=== PATIENT | male | born 1980 | race Caucasian/White ===

== ENCOUNTER 2017-04-18 14:04 | Emergency (ER) | payer BC ==
[2017-04-18 14:45] VITALS: BP 142/84
[2017-04-18] MEDS ORDERED: Sodium Chloride 0.9% 10 ML Syringe FLUSH PRN (14:50)
[2017-04-18] MEDS ORDERED: Sodium Chloride 0.9% 1,000 ML IV ONE ×2 (14:50→16:11)
[2017-04-18] MEDS ORDERED: Ketorolac 30 MG/ML SDV IVPUSH ONE (15:09)
--- NOTE | 2017-04-18 17:54 | EDM.PDOC ---
ED HPI GENERAL MEDICAL PROBLEM - General Chief Complaint: Gastrointestinal Problem Stated Complaint: NAUSEA/ABDOMINAL PAIN- DIABETIC Time Seen by Provider: 04/18/17 14:49 Source of Information: Reports: Patient History Limitations: Reports: No Limitations - History of Present Illness INITIAL COMMENTS - FREE TEXT/NARRATIVE: 36 year old male presents for evaluation and treatment of nausea, vomiting, diarrhea and abdominal pain. Reports symptoms started at 0100 this morning. Reports he has vomited 4 times today. Reports associated bodyaches. Describes the abdominal pain as "squeezing". States he has had a "little bit" of a cough. No headaches, chest pain, shortness of breath, ear pain or sore throat. Patient did take a zofran around 11 today, no vomiting since taking the zofran. Patient is a type 2 diabetic. Currently on oral medications. Does not check his blood sugars frequently. Blood sugar upon arrival in the ER was 309. Denies any recent travel. Reports several ill contacts. 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 Patient did get a flu shot this year. PCP is Dr. Blair. Patient reports he has had DKA before. Concerned he is in DKA again today. 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: Other Medication(s) (zofran) Abdominal Pain Score (Numeric/FACES): 5 - Related Data Allergies Allergy/AdvReac Type Severity Reaction Status Date / Time metformin Allergy Leg Cramps Verified 04/18/17 14:40 Home Meds: Home Meds glipiZIDE [Glucotrol] 10 mg PO TID 06/19/14 [History] Lisinopril 20 mg PO DAILY 09/12/15 [History] Ondansetron [Zofran ODT] 4 mg PO Q6H PRN #20 tab.dis 04/18/17 [Rx] Pioglitazone [Actos] 15 mg PO DAILY 04/18/17 [History] Past Medical History HEENT History: Reports: Impaired Vision Cardiovascular History: Reports: Hypertension Musculoskeletal History: Reports: None Endocrine/Metabolic History: Reports: Diabetes, Type II - Past Surgical History HEENT Surgical History: Reports: Other (See Below) Other HEENT Surgeries/Procedures: wisdom teeth Cardiovascular Surgical History: Reports: None Musculoskeletal Surgical History: Reports: Arthroscopic Knee Social & Family History - Family History Family Medical History: Noncontributory - Tobacco Use Smoking Status *Q: Never Smoker Second Hand Smoke Exposure: No - Caffeine Use Caffeine Use: Reports: Coffee, Soda - Alcohol Use Days Per Week of Alcohol Use: 0 - Recreational Drug Use Recreational Drug Use: No - Living Situation & Occupation Living situation: Reports: , with Family Occupation: Employed ED ROS GENERAL - Review of Systems Review Of Systems: See Below Constitutional: Reports: Other (reports bodyaches) HEENT: Denies: Ear Pain, Throat Pain Respiratory: Reports: Cough (slight). Denies: Shortness of Breath Cardiovascular: Denies: Chest Pain GI/Abdominal: Reports: Abdominal Pain ("squeezing"), Diarrhea, Nausea, Vomiting Neurological: Denies: Headache ED EXAM, GI/ABD - Physical Exam Exam: See Below Exam Limited By: No Limitations General Appearance: Alert, WD/WN, No Apparent Distress, Obese Ears: Normal External Exam, Normal Canal, Hearing Grossly Normal, Normal TMs Nose: Normal Inspection Throat/Mouth: Normal Inspection, Normal Lips, Normal Voice, No Airway Compromise Respiratory/Chest: No Respiratory Distress, Lungs Clear, Normal Breath Sounds Cardiovascular: Normal Peripheral Pulses, Regular Rate, Rhythm, No Murmur GI/Abdominal Exam: Normal Bowel Sounds, Soft, Non-Tender Neurological: Alert, Oriented, Normal Cognition Psychiatric: Normal Affect, Normal Mood Skin Exam: Warm, Dry, Normal Color Course - Vital Signs Last Recorded V/S: Last Vital Signs Temp 37.7 C 04/18/17 14:40 Pulse 123 H 04/18/17 15:01 Resp 30 H 04/18/17 15:01 BP 142/84 H 04/18/17 14:40 Pulse Ox 93 L 04/18/17 15:01 - Orders/Labs/Meds Orders: Active Orders 24 hr Category Date Time Status Blood Glucose Check, Bedside [RC] ONETIME Care 04/18/17 14:50 Active Peripheral IV Care [RC] . DIRECTED Care 04/18/17 14:50 Active Peripheral IV Insertion Adult [OM.PC] Routine Oth 04/18/17 14:50 Ordered Labs: Laboratory Tests 04/18/17 04/18/17 04/18/17 Range/Units 14:55 15:00 15:00 WBC 8.42 (4.23-9.07) K/mm3 RBC 5.75 (4.63-6.08) M/mm3 Hgb 16.4 (13.7-17.5) gm/L Hct 46.3 (40.1-51.0) % MCV 80.5 (79.0-92.2) fl MCH 28.5 (25.7-32.2) pg MCHC 35.4 (32.2-35.5) g/dl RDW Std Deviation 42.0 (35.1-43.9) fL Plt Count 202 (163-337) K/mm3 MPV 10.5 (9.4-12.3) fl Neutrophils % (Manual) 88 H (40-60) % Band Neutrophils % 4 (0-10) % Lymphocytes % (Manual) 3 L (20-40) % Monocytes % (Manual) 4 (2-10) % Eosinophils % (Manual) 0 L (0.8-7.0) % Basophils % (Manual) 1 (0.2-1.2) Platelet Estimate Adequate Plt Morphology Comment Normal RBC Morph Comment Normal Smear Path Review TNP Sodium 135 L (136-145) mEq/L Potassium 4.0 (3.5-5.1) mEq/L Chloride 100 (98-107) mEq/L Carbon Dioxide 23 (21-32) mEq/L Anion Gap 16.0 H (5-15) BUN 10 (7-18) mg/dL Creatinine 1.0 (0.7-1.3) mg/dL Est Cr Clr Drug Dosing 124.40 mL/min Estimated GFR (MDRD) > 60 (>60) mL/min BUN/Creatinine Ratio 10.0 L (14-18) Glucose 304 H (74-106) mg/dL POC Glucose 309 H (70-105) mg/dL Serum Osmolality (280-300) mosm/kg Calcium 9.0 (8.5-10.1) mg/dL Total Bilirubin 0.9 (0.2-1.0) mg/dL AST 62 H (15-37) U/L ALT 81 H (16-63) U/L Alkaline Phosphatase 73 (46-116) U/L Total Protein 7.3 (6.4-8.2) g/dl Albumin 3.6 (3.4-5.0) g/dl Globulin 3.7 gm/dL Albumin/Globulin Ratio 1.0 (1-2) Lipase (73-393) U/L Urine Color (Yellow) Urine Appearance (Clear) Urine pH (5.0-8.0) Ur Specific Birney (1.005-1.030) Urine Protein (Negative) Urine Glucose (UA) (Negative) Urine Ketones (Negative) Urine Occult Blood (Negative) Urine Nitrite (Negative) Urine Bilirubin (Negative) Urine Urobilinogen (0.2-1.0) Ur Leukocyte Esterase (Negative) Urine RBC (0-5) /hpf Urine WBC (0-5) /hpf Ur Epithelial Cells (0-5) /hpf Amorphous Sediment (NOT SEEN) /hpf Urine Bacteria (FEW) /hpf Hyaline Casts (0-5) /lpf Urine Mucus (FEW) /hpf Ketones (0.0-0.3) mM Slides for Path Review TNP 04/18/17 04/18/17 04/18/17 Range/Units 15:00 15:00 16:30 WBC (4.23-9.07) K/mm3 RBC (4.63-6.08) M/mm3 Hgb (13.7-17.5) gm/L Hct (40.1-51.0) % MCV (79.0-92.2) fl MCH (25.7-32.2) pg MCHC (32.2-35.5) g/dl RDW Std Deviation (35.1-43.9) fL Plt Count (163-337) K/mm3 MPV (9.4-12.3) fl Neutrophils % (Manual) (40-60) % Band Neutrophils % (0-10) % Lymphocytes % (Manual) (20-40) % Monocytes % (Manual) (2-10) % Eosinophils % (Manual) (0.8-7.0) % Basophils % (Manual) (0.2-1.2) Platelet Estimate Plt Morphology Comment RBC Morph Comment Smear Path Review Sodium (136-145) mEq/L Potassium (3.5-5.1) mEq/L Chloride (98-107) mEq/L Carbon Dioxide (21-32) mEq/L Anion Gap (5-15) BUN (7-18) mg/dL Creatinine (0.7-1.3) mg/dL Est Cr Clr Drug Dosing mL/min Estimated GFR (MDRD) (>60) mL/min BUN/Creatinine Ratio (14-18) Glucose (74-106) mg/dL POC Glucose (70-105) mg/dL Serum Osmolality 291 (280-300) mosm/kg Calcium (8.5-10.1) mg/dL Total Bilirubin (0.2-1.0) mg/dL AST (15-37) U/L ALT (16-63) U/L Alkaline Phosphatase (46-116) U/L Total Protein (6.4-8.2) g/dl Albumin (3.4-5.0) g/dl Globulin gm/dL Albumin/Globulin Ratio (1-2) Lipase 153 (73-393) U/L Urine Color Yellow (Yellow) Urine Appearance Clear (Clear) Urine pH 5.5 (5.0-8.0) Ur Specific Birney > or = 1.030 (1.005-1.030) Urine Protein Trace H (Negative) Urine Glucose (UA) 2+ H (Negative) Urine Ketones Negative (Negative) Urine Occult Blood Negative (Negative) Urine Nitrite Negative (Negative) Urine Bilirubin Negative (Negative) Urine Urobilinogen 0.2 (0.2-1.0) Ur Leukocyte Esterase Negative (Negative) Urine RBC 0-5 (0-5) /hpf Urine WBC 0-5 (0-5) /hpf Ur Epithelial Cells Not seen (0-5) /hpf Amorphous Sediment Many H (NOT SEEN) /hpf Urine Bacteria Few (FEW) /hpf Hyaline Casts 0-5 (0-5) /lpf Urine Mucus Moderate H (FEW) /hpf Ketones 0.19 (0.0-0.3) mM Slides for Path Review Meds: Medications Discontinued Medications Generic Name Dose Route Start Last Admin Trade Name Chance PRN Reason Stop Dose Admin Sodium Chloride 1,000 mls @ 999 mls/hr 04/18/17 14:50 04/18/17 15:10 Normal Saline IV 04/18/17 15:50 999 mls/hr ONETIME ONE Administration Sodium Chloride 1,000 mls @ 999 mls/hr 04/18/17 16:11 04/18/17 16:18 Normal Saline IV 04/18/17 17:11 999 mls/hr ONETIME ONE Administration Ketorolac Tromethamine 30 mg 04/18/17 15:09 04/18/17 15:12 Toradol IVPUSH 04/18/17 15:10 30 mg ONETIME ONE Administration Sodium Chloride 10 ml 04/18/17 14:50 04/18/17 15:10 Saline Flush FLUSH 10 ml ASDIRECTED PRN Administration Keep Vein Open - Radiology Interpretation Free Text/Narrative:: 2 view chest xray shows no acute intrathoracic process. - Re-Assessments/Exams Free Text/Narrative Re-Assessment/Exam: 04/19/17 14:45 influenza is negative. I reviewed the labs and imaging with the patient. Improved after fluids. Will discharge home at this time. Discharge instructions as documented. Departure - Departure Time of Disposition: 17:49 Disposition: Home, Self-Care 01 Condition: Good Clinical Impression: Viral gastroenteritis - Discharge Information Prescriptions: Ondansetron [Zofran ODT] 4 mg PO Q6H PRN #20 tab.dis PRN Reason: Nausea Instructions: Viral Gastroenteritis, Adult Referrals: PCP,Unknown [Primary Care Provider] - Forms: ED Department Discharge, ED Return to Work/School Form Additional Instructions: Zofran 1 tab sublingual every 6 hours as needed for nausea. Make sure you are drinking plenty of fluids. Follow-up with your primary care provider early next week for recheck of your symptoms. note given for work. recommend Starting an [id number] probiotic for additional symptom relief. Please return to the ER if your symptoms change or worsen. - My Orders Last 24 Hours: My Active Orders 04/18/17 14:50 Blood Glucose Check, Bedside [RC] ONETIME Peripheral IV Care [RC] . DIRECTED Peripheral IV Insertion Adult [OM.PC] Routine - Assessment/Plan Last 24 Hours: My Active Orders 04/18/17 14:50 Blood Glucose Check, Bedside [RC] ONETIME Peripheral IV Care [RC] . DIRECTED Peripheral IV Insertion Adult [OM.PC] Routine
--- NOTE | 2017-04-19 10:08 | CR ---
Chest: Portable view of the chest was obtained. Comparison: Prior chest x-ray of 06/19/14. Heart size and mediastinum are within normal limits. Lungs are clear. Bony structures appear within normal limits. Impression: 1. Nothing acute is identified on portable chest x-ray. Diagnostic code #1
== END 2017-04-18 18:07 | disposition home or self-care (01) ==
LOC: JD.ED 14:04
DX: A08.4 Viral intestinal infection, unspecified (principal); E11.9 Type 2 diabetes mellitus without complications; I10 Essential (primary) hypertension; Z79.899 Other long term (current) drug therapy
CPT/HCPCS: 36415; 71010; 80053; 81001; 82009; 82962; 83690; 83930; 85025; 87804; 96361; 96374; 99284; J1885; J7040; J7050

== ENCOUNTER 2019-07-14 18:06 | Emergency (ER) | payer BC, OTHER ==
[2019-07-14 18:21] VITALS: BP 145/99; PULSE 100
--- NOTE | 2019-07-14 19:21 | EDM.PDOC ---
ED HPI GENERAL MEDICAL PROBLEM - General Chief Complaint: ENT Problem Stated Complaint: sore throat cough ear pain Time Seen by Provider: 07/14/19 19:21 Source of Information: Reports: Patient History Limitations: Reports: No Limitations - History of Present Illness INITIAL COMMENTS - FREE TEXT/NARRATIVE: 38-year-old male presents to the ED with persistent upper respiratory infection symptoms off and on for the last 3 weeks. He just cannot seem to get better. He is aware of sinus congestion and having to blow his nose a fair amount. Aware of postnasal drip causing sore throat. Paroxysmal productive cough of a danielle brownish sputum. No chest pain. No severe fever. No wheezing. Tonight right ear pain seem to be getting worse and this is the reason he came to the ED. 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 Onset: Gradual Onset Date: 06/23/19 Duration: Week(s): (Mark is been sick off and on for the last 3 weeks.), Intermittent, Waxing/Waning Location: Reports: Face (Sore throat nasal congestion), Chest (Accessible cough to the point of near emesis.) Quality: Reports: Other Severity: Moderate (Burning sharp pain throat and right ear) Improves with: Reports: Medication Worsens with: Reports: None Context: Reports: Sick Contact (Runs a daycare center with his .). Denies: Activity, Exercise, Lifting, Trauma, Other Associated Symptoms: Reports: Cough, cough w sputum, Fever/Chills, Loss of Appetite, Malaise, Other (Your throat with right ear pain). Denies: No Other Symptoms, Confusion, Chest Pain, Diaphoresis (Fever but no chills), Headaches, Nausea/Vomiting, Rash, Seizure, Shortness of Breath, Syncope Treatments WELCOME HOSTESS: Reports: NSAIDS (Motrin) Throat Pain Score (Numeric/FACES): 5 - Related Data Allergies Allergy/AdvReac Type Severity Reaction Status Date / Time metformin Allergy Leg Cramps Verified 07/14/19 18:21 Home Meds: Home Meds glipiZIDE [Glucotrol] 10 mg PO TID 06/19/14 [History] Lisinopril 20 mg PO DAILY 09/12/15 [History] Doxycycline [Vibramycin] 100 mg PO BID #20 cap 07/14/19 [Rx] Loratadine/Pseudoephedrine [Claritin-D 12 Hour] 1 tab PO Q12HR #6 tab.er [Rx] Past Medical History HEENT History: Reports: Impaired Vision Cardiovascular History: Reports: Hypertension Respiratory History: Reports: None Gastrointestinal History: Reports: None Genitourinary History: Reports: None Musculoskeletal History: Reports: None Neurological History: Reports: None Psychiatric History: Reports: None Endocrine/Metabolic History: Reports: Diabetes, Type II, Obesity/BMI 30+ Hematologic History: Reports: None Immunologic History: Reports: None Oncologic (Cancer) History: Reports: None Dermatologic History: Reports: None - Infectious Disease History Infectious Disease History: Reports: None - Past Surgical History HEENT Surgical History: Reports: Oral Surgery Other HEENT Surgeries/Procedures: wisdom teeth Cardiovascular Surgical History: Reports: None Musculoskeletal Surgical History: Reports: Arthroscopic Knee Social & Family History - Family History Family Medical History: Noncontributory - Tobacco Use Smoking Status *Q: Never Smoker - Caffeine Use Caffeine Use: Reports: Soda - Recreational Drug Use Recreational Drug Use: No - Living Situation & Occupation Living situation: Reports: , with Family Occupation: Employed ED ROS ENT - Review of Systems Review Of Systems: See Below Constitutional: Reports: Fever, Malaise, Weakness, Fatigue, Decreased Appetite HEENT: Reports: Ear Pain (Right earache.), Sinus Problem (Sinus congestion with postnasal drip), Throat Pain Respiratory: Reports: Cough, Sputum. Denies: Shortness of Breath, Wheezing, Pleuritic Chest Pain, Hemoptysis Cardiovascular: Reports: Chest Pain, Blood Pressure Problem (Upper chest pain from coughing so much.). Denies: Claudication, Dyspnea on Exertion, Edema, Lightheadedness, Orthopnea, Palpitations Endocrine: Reports: Fatigue GI/Abdominal: Reports: Decreased Appetite : Reports: No Symptoms Musculoskeletal: Reports: Back Pain Skin: Reports: No Symptoms Neurological: Reports: No Symptoms Psychiatric: Reports: No Symptoms ED EXAM, ENT - Physical Exam Exam: See Below Exam Limited By: No Limitations General Appearance: Alert, WD/WN, No Apparent Distress, Other (Vital signs show temperature 36.8 heart rate 100 and sinus. Respiratory is 18. O2 sats 95% room air BP slightly elevated 145/99. Come down to 136/92.) Eye Exam: Bilateral Eye: Normal Inspection Ears: TM Bulging ( with slight erythema inside), Other (There is slight erythema of the left ear with retraction. There is bulging of the right ear) Nose: Other (Nose show some slight swelling of the medial and superior turbinates without obstruction or polyp formation) Mouth/Throat: Normal Teeth, Other (Have red streaking posterior oropharynx on the right side.). No: Normal Inspection, Normal Gums, Normal Lips, Normal Oropharynx Head: Atraumatic, Normocephalic Neck: Normal Inspection, Supple, Non-Tender, Full Range of Motion. No: Lymphadenopathy (L), Lymphadenopathy (R) Respiratory/Chest: No Respiratory Distress, Lungs Clear, Normal Breath Sounds Cardiovascular: Normal Peripheral Pulses, Regular Rate, Rhythm, No Edema, No Gallop, No Murmur, No Rub GI/Abdominal: Normal Bowel Sounds, Soft, Non-Tender, No Organomegaly Back: Normal Inspection, Full Range of Motion. No: CVA Tenderness (L), CVA Tenderness (R) Extremities: Normal Inspection, Normal Range of Motion, Non-Tender, No Pedal Edema Neurological: Alert, Oriented, CN II-XII Intact, Normal Cognition Psychiatric: Normal Affect, Normal Mood Course - Vital Signs Last Recorded V/S: Last Vital Signs Temp 36.8 C 07/14/19 18:18 Pulse 100 07/14/19 18:18 Resp 16 07/14/19 18:18 BP 145/99 H 07/14/19 18:18 Pulse Ox 95 07/14/19 18:18 - Radiology Interpretation Free Text/Narrative:: 88-year-old male presents with persistent upper respiratory tract symptoms with sinus congestion postnasal drip and now development of right ear pain. Also has a paroxysmal cough likely from postnasal drip. Examination reveals slight erythema of the right eardrum. The left is retracted with serous otitis media. Nasally congested narrow strip of inflammation the right posterior oropharynx. Lower lungs are clear but he does have a very productive sounding cough from upper bronchitis. Plan treated with doxycycline 100 mg twice daily for the next 10 days to clear up infection in the sinuses. Added Claritin-D 12- hour relief once daily every morning for the next 6 days. The patient is a type II diabetic. Departure - Departure Time of Disposition: 19:33 Disposition: Home, Self-Care 01 Condition: Fair Clinical Impression: Bronchitis Sinusitis Qualifiers: Sinusitis location: unspecified location Chronicity: acute Recurrence: recurrent Qualified Code(s): J01.91 - Acute recurrent sinusitis, unspecified - Discharge Information *PRESCRIPTION DRUG MONITORING PROGRAM REVIEWED*: Not Applicable *COPY OF PRESCRIPTION DRUG MONITORING REPORT IN PATIENT MARIO: Not Applicable Prescriptions: Loratadine/Pseudoephedrine [Claritin-D 12 Hour] 1 tab PO Q12HR #6 tab.er Doxycycline [Vibramycin] 100 mg PO BID #20 cap Instructions: Sinusitis, Adult, [id number], Upper Respiratory Infection, Adult, [id number] Referrals: Tamanna Medina MD [Primary Care Provider] - Forms: ED Department Discharge Additional Instructions: Evaluation in the emergency room today in regards to right throat pain rating up into her right ear with swallowing. Harsh paroxysmal productive cough off and on for the last 3 weeks. I believe the primary problem is sinusitis with postnasal drip running down the back of your throat causing throat pain and persistent cough. Suggest treatment with cool mist humidifier and sleeping quarters. Decongestant Claritin-D 12-hour release 1 tablet every morning for the next 6 days. Antibiotic is to be doxycycline 100 mg twice daily for the next 10 days to clear up sinus infection postnasal drip and bronchitis. Any Motrin 600 mg every 6 hours as necessary for pain and fever relief. Expect gradual improvement over the next 3 to 4 days. Sepsis Event Note - Evaluation Sepsis Screening Result: No Definite Risk - Focused Exam Vital Signs: Vital Signs Temp Pulse Resp BP Pulse Ox 07/14/19 18:18 36.8 C 100 16 145/99 H 95 Date Exam was Performed: 07/14/19 Time Exam was Performed: 19:37
== END 2019-07-14 19:51 | disposition home or self-care (01) ==
LOC: JD.ED 18:06
DX: J40 Bronchitis, not specified as acute or chronic (principal); J01.91 Acute recurrent sinusitis, unspecified; E11.9 Type 2 diabetes mellitus without complications; I10 Essential (primary) hypertension; E66.9 Obesity, unspecified; Z68.41 Body mass index [BMI] 40.0-44.9, adult; Z79.899 Other long term (current) drug therapy; Z88.8 Allergy status to other drugs, medicaments and biological substances; Z79.84 Long term (current) use of oral hypoglycemic drugs
CPT/HCPCS: 99283

== ENCOUNTER 2020-09-25 22:16 | Emergency (ER) | payer OTHER ==
[2020-09-25] MEDS ORDERED: HYDROmorphone 1 MG/ML Syringe IVPUSH ONE (22:53)
[2020-09-25] MEDS ORDERED: Metoclopramide 10 MG/2 ML SDV IVPUSH ONE (22:54)
--- NOTE | 2020-09-25 22:59 | EDM.PDOC ---
ED HPI GENERAL MEDICAL PROBLEM - General Chief Complaint: Gastrointestinal Problem Stated Complaint: STOMACH ISSUES VOMMITTING Time Seen by Provider: 09/25/20 22:43 Source of Information: Reports: Patient History Limitations: Reports: No Limitations - History of Present Illness INITIAL COMMENTS - FREE TEXT/NARRATIVE: 40-year-old male who is a type II diabetic for about 9 years presents to the ED with acute onset of nausea vomiting and diarrhea. Symptoms started about 1800 hrs. with recurrent vomiting well in the vehicle traveling back from [place]. His is driving. He thought he could taste a bit of blood but did not recognize any blood pressure coming up from vomiting. He estimates he vomited about 15 times. Subsequently after getting home he has had about 5-6 large- volume yellow stool losses. No blood. Mild associated diffuse lower abdominal cramping pain. He did have a hamburger for dinner today. He thought it was well cooked. None of his other family members have been ill. He states there are members of the daycare that are sick x4 with gastroenteritis over this last week.. Patient states his blood sugars run high and he only checks once vick hly. Usually they have been around 400. Currently taking glipizide 10 mg twice daily and Ozempic 1 mg subcu weekly. Therefore diabetes is in very poor control. He has no known kidney or eye disease at this time. Blood sugar tested in the ED was 320. Patient has felt some chills but no noted fever. Onset: Today, Sudden Onset Date: 09/25/20 Onset Time: 18:00 Duration: Hour(s):, Constant Location: Reports: Abdomen (Intermittent nausea vomiting and diarrhea for the la st 5 hours.) Quality: Reports: Other (Intermittent lower abdominal cramping pain primarily left lower quadrant.) Severity: Moderate Improves with: Reports: None Worsens with: Reports: Other Context: Denies: Activity, Exercise, Lifting, Sick Contact, Trauma, Other Associated Symptoms: Reports: Fever/Chills, Loss of Appetite, Malaise. Denies: Confusion, Chest Pain, Cough, cough w sputum, Diaphoresis, Headaches, Nausea/Vomiting, Rash, Seizure (Few chills but no fever.), Shortness of Breath, Syncope, Weakness Treatments [employer]: Reports: Other (see below) (None. Nothing will stay down) Middle Abdominal Pain Score (Numeric/FACES): 5 - Related Data Allergies Allergy/AdvReac Type Severity Reaction Status Date / Time metformin Allergy Severe Leg Cramps Verified 09/25/20 22:40 Home Meds: Home Meds glipiZIDE [Glucotrol] 10 mg PO BID 06/19/14 [History] Lisinopril 20 mg PO DAILY 09/12/15 [History] Losartan Potassium [Cozaar] 50 mg PO DAILY 09/25/20 [History] Rosuvastatin Calcium 5 mg PO DAILY 09/25/20 [History] Semaglutide [Ozempic] 1 mg SUBCUT WEEKLY 09/25/20 [History] Dicyclomine [Bentyl] 20 mg PO Q6H PRN #5 tablet 09/26/20 [Rx] Ondansetron [Zofran] 4 mg BUCCAL Q6H PRN #10 tab 09/26/20 [Rx] Past Medical History HEENT History: Reports: Impaired Vision Cardiovascular History: Reports: High Cholesterol, Hypertension Respiratory History: Reports: None Gastrointestinal History: Reports: None Genitourinary History: Reports: None Musculoskeletal History: Reports: None Neurological History: Reports: None Psychiatric History: Reports: None Endocrine/Metabolic History: Reports: Diabetes, Type II, Obesity/BMI 30+ Hematologic History: Reports: None Immunologic History: Reports: None Oncologic (Cancer) History: Reports: None Dermatologic History: Reports: None - Infectious Disease History Infectious Disease History: Reports: None - Past Surgical History HEENT Surgical History: Reports: Oral Surgery Other HEENT Surgeries/Procedures: wisdom teeth Cardiovascular Surgical History: Reports: None Musculoskeletal Surgical History: Reports: Arthroscopic Knee Social & Family History - Family History Family Medical History: No Pertinent Family History - Caffeine Use Caffeine Use: Reports: Soda - Living Situation & Occupation Living situation: Reports: , with Family Occupation: Employed [employer] [facility] [employer] [facility] [facility] - Review of Systems Review Of Systems: See Below Constitutional: Reports: Chills, Malaise, Weakness, Fatigue, Decreased Appetite. Denies: Fever HEENT: Reports: No Symptoms Respiratory: Reports: No Symptoms Cardiovascular: Reports: No Symptoms Endocrine: Reports: Fatigue GI/Abdominal: Reports: Abdominal Pain (Intermittent lower abdominal cramping pain.), Diarrhea (5-6 large volume yellow stool losses per rectum tonight.), Nausea, Vomiting (Estimates he has vomited 15 times since) : Reports: Frequency Musculoskeletal: Reports: Back Pain Skin: Reports: No Symptoms Neurological: Reports: No Symptoms Psychiatric: Reports: No Symptoms Hematologic/Lymphatic: Reports: No Symptoms Immunologic: Reports: No Symptoms ED EXAM, GI/ABD - Physical Exam Exam: See Below Exam Limited By: No Limitations General Appearance: Alert, WD/WN, Mild Distress, Other (Temperature is 36.4 degrees. Heart rate 110 and sinus at the bedside. Respiratory is 20 with O2 sats of 94% at the bedside. BP 148/81.) Eyes: Bilateral: Normal Appearance (No scleral icterus or blepharal pallor.) Throat/Mouth: Other (Tongue is mildly coated.) Head: Atraumatic, Normocephalic Neck: Normal Inspection, Supple, Non-Tender, Full Range of Motion. No: Lymphadenopathy (L), Lymphadenopathy (R) Respiratory/Chest: Lungs Clear, Normal Breath Sounds (Mild tachypnea.), No Accessory Muscle Use, Chest Non-Tender, Respiratory Distress Cardiovascular: Normal Peripheral Pulses, Regular Rate, Rhythm, No Edema, No Gallop (Tachycardia at the bedside.), No JVD, No Murmur, No Rub, Tachycardia GI/Abdominal Exam: Soft ( Moderately obese.), No Organomegaly, No Abnormal Bruit, No Mass, Pelvis Stable, Tender (Minimally tender left lower quadrant of the abdomen. No peritoneal signs), Abnormal Bowel Sounds, Other (No surgical scars.). No: Guarding, Rigid, Rebound (Male) Exam: No Hernia Back Exam: Normal Inspection, Full Range of Motion. No: CVA Tenderness (L), CVA Tenderness (R) Extremities: Normal Inspection, Normal Range of Motion, Non-Tender, No Pedal Edema Neurological: Alert, Oriented, CN II-XII Intact, Normal Cognition Psychiatric: Normal Affect, Normal Mood Skin Exam: Warm, Dry, Intact, Normal Color, No Rash Course - Vital Signs Last Recorded V/S: Last Vital Signs Temp 36.4 C 09/25/20 22:35 Pulse 110 H 09/25/20 22:35 Resp 20 09/25/20 22:35 BP 148/81 H 09/25/20 22:35 Pulse Ox 90 L 09/25/20 22:35 - Orders/Labs/Meds Orders: Active Orders 24 hr Category Date Time Status Sodium Chloride 0.9% [Normal Saline] 1,000 ml Med 09/25/20 23:00 Active IV ASDIRECTED Sodium Chloride 0.9% [Normal Saline] 1,000 ml Med 09/26/20 00:15 Active IV ASDIRECTED Medication Orders Sodium Chloride (Normal Saline) 1,000 mls @ 999 mls/hr IV ASDIRECTED RUSSEL Last Admin: 09/26/20 00:25 Dose: 999 mls/hr Documented by: Infusion: 09/26/20 00:25 Dose: 999 mls/hr Documented by: Admin: 09/26/20 00:24 Dose: 999 mls/hr Documented by: Infusion: 09/26/20 00:18 Dose: 999 mls/hr Documented by: Admin: 09/25/20 23:17 Dose: 999 mls/hr Documented by: JANI Sodium Chloride (Normal Saline) 1,000 mls @ 999 mls/hr IV ASDIRECTED [facility] Labs: Laboratory Tests 09/25/20 09/25/20 09/25/20 Range/Units 22:30 22:59 22:59 WBC 12.71 H (4.23-9.07) K/mm3 RBC 5.70 (4.63-6.08) M/mm3 Hgb 16.1 (13.7-17.5) gm/dl Hct 46.2 (40.1-51.0) % MCV 81.1 (79.0-92.2) fl MCH 28.2 (25.7-32.2) pg MCHC 34.8 (32.2-35.5) g/dl RDW Std Deviation 43.3 (35.1-43.9) fL Plt Count 204 (163-337) K/mm3 MPV 10.4 (9.4-12.3) fl Neut % (Auto) 90.4 H (34.0-67.9) % Lymph % (Auto) 2.5 L (21.8-53.1) % Phelps % (Auto) 6.3 (5.3-12.2) % Eos % (Auto) 0.3 L (0.8-7.0) Baso % (Auto) 0.2 (0.1-1.2) % Neut # (Auto) 11.48 H (1.78-5.38) K/mm3 Lymph # (Auto) 0.32 L (1.32-3.57) K/mm3 Phelps # (Auto) 0.80 (0.30-0.82) K/mm3 Eos # (Auto) 0.04 (0.04-0.54) K/mm3 Baso # (Auto) 0.03 (0.01-0.08) K/mm3 Manual Slide Review Abnormal smear Sodium 139 (136-145) mEq/L Potassium 4.1 (3.5-5.1) mEq/L Chloride 101 (98-107) mEq/L Carbon Dioxide 24 (21-32) mEq/L Anion Gap 18.1 H (5-15) BUN 19 H (7-18) mg/dL Creatinine 1.1 (0.7-1.3) mg/dL Est Cr Clr Drug Dosing 108.83 mL/min Estimated GFR (MDRD) > 60 (>60) mL/min BUN/Creatinine Ratio 17.3 (14-18) Glucose 297 H (74-106) mg/dL POC Glucose 320 H (70-99) mg/dL Hemoglobin A1c ( - 5.6) % Calcium 9.2 (8.5-10.1) mg/dL Total Bilirubin 1.2 H (0.2-1.0) mg/dL AST 25 (15-37) U/L ALT 62 (16-63) U/L Alkaline Phosphatase 70 (46-116) U/L C-Reactive Protein 0.7 (<1.0) mg/dL Total Protein 7.9 (6.4-8.2) g/dl Albumin 4.3 (3.4-5.0) g/dl Globulin 3.6 gm/dL Albumin/Globulin Ratio 1.2 (1-2) Ketones (0.0-0.3) mM 09/25/20 09/25/20 09/26/20 Range/Units 22:59 22:59 01:43 WBC (4.23-9.07) K/mm3 RBC (4.63-6.08) M/mm3 Hgb (13.7-17.5) gm/dl Hct (40.1-51.0) % MCV (79.0-92.2) fl MCH (25.7-32.2) pg MCHC (32.2-35.5) g/dl RDW Std Deviation (35.1-43.9) fL Plt Count (163-337) K/mm3 MPV (9.4-12.3) fl Neut % (Auto) (34.0-67.9) % Lymph % (Auto) (21.8-53.1) % Phelps % (Auto) (5.3-12.2) % Eos % (Auto) (0.8-7.0) Baso % (Auto) (0.1-1.2) % Neut # (Auto) (1.78-5.38) K/mm3 Lymph # (Auto) (1.32-3.57) K/mm3 Phelps # (Auto) (0.30-0.82) K/mm3 Eos # (Auto) (0.04-0.54) K/mm3 Baso # (Auto) (0.01-0.08) K/mm3 Manual Slide Review Sodium (136-145) mEq/L Potassium (3.5-5.1) mEq/L Chloride (98-107) mEq/L Carbon Dioxide (21-32) mEq/L Anion Gap (5-15) BUN (7-18) mg/dL Creatinine (0.7-1.3) mg/dL Est Cr Clr Drug Dosing mL/min Estimated GFR (MDRD) (>60) mL/min BUN/Creatinine Ratio (14-18) Glucose (74-106) mg/dL POC Glucose 285 H (70-99) mg/dL Hemoglobin A1c 8.4 H ( - 5.6) % Calcium (8.5-10.1) mg/dL Total Bilirubin (0.2-1.0) mg/dL AST (15-37) U/L ALT (16-63) U/L Alkaline Phosphatase (46-116) U/L C-Reactive Protein (<1.0) mg/dL Total Protein (6.4-8.2) g/dl Albumin (3.4-5.0) g/dl Globulin gm/dL Albumin/Globulin Ratio (1-2) Ketones 0.86 (0.0-0.3) mM Meds: Medications Generic Name Dose Route Start Last Admin Trade Name Freq PRN Reason Stop Dose Admin Sodium Chloride 1,000 mls @ 999 mls/hr 09/25/20 23:00 09/26/20 00:25 Normal Saline IV 999 mls/hr ASDIRECTED RUSSEL Administration Sodium Chloride 1,000 mls @ 999 mls/hr 09/26/20 00:15 Normal Saline IV ASDIRECTED URSSEL Discontinued Medications Generic Name Dose Route Start Last Admin Trade Name Chance PRN Reason Stop Dose Admin Dicyclomine HCl 20 mg 09/26/20 01:04 09/26/20 01:28 Dicyclomine 10 Mg Cap PO 09/26/20 01:05 20 mg ONETIME ONE Administration Hydromorphone HCl 1 mg 09/25/20 22:53 09/25/20 23:18 Hydromorphone 1 Mg/Ml Syringe IVPUSH 09/25/20 22:54 1 mg ONETIME ONE Administration Insulin Human Regular 5 unit 09/26/20 00:08 09/26/20 00:17 Insulin Regular, Human 100 Units/Ml 3 Ml Vial IV 09/26/20 00:09 5 unit ONETIME ONE Administration Metoclopramide HCl 10 mg 09/25/20 22:54 09/25/20 23:17 Metoclopramide 10 Mg/2 Ml Sdv IVPUSH 09/25/20 22:55 10 mg ONETIME ONE Administration Ondansetron HCl 4 mg 09/26/20 00:08 09/26/20 00:21 Ondansetron 4 Mg/2 Ml Sdv IVPUSH 09/26/20 00:09 4 mg ONETIME ONE Administration - Radiology Interpretation Free Text/Narrative:: 40-year-old male presents to the ED with acute onset of nausea vomiting and diarrhea starting about 1800 hrs. tonight. He was traveling back from [place] with his family with his driving when he started to have nausea and then vomiting. Estimates he vomited 15 times in the last 5 hours. After getting home he is developed prolific large volumes yellow stool losses x6. No blood noted. He did have a hamburger while in [place] at one of the local restaurants at dinnertime. He thought that it was well cooked without pink meat. He states that the daycare where his children go for children have been out with gastroenteritis in the last week. He is afebrile. Benign abdominal examination. Patient is a type II diabetic poorly controlled. Checks his blood sugars only once a month. He states he often around 400. Blood sugar in the ED is 320. Plan IV normal saline at open. Routine labs to be collected including a CRP and a glycosylated protein and serum ketones. I do not smell ketones on his breath. Tongue is dry however. He will be given Dilaudid 1 mg IV for relief of abdominal cramping pain and to slow the diarrhea down. Given Reglan 10 mg IV for nausea relief. - Re-Assessments/Exams Free Text/Narrative Re-Assessment/Exam: 09/26/20 00:05 White count is mildly elevated at 12.71 with a left shift of 90.4% neutrophils. Hemoglobin is 16.1 with hematocrit of 46.2. Platelet count 204,000. The slide does not show any bandemia. Sodium 139 with a potassium of 4.1. Chloride 101 with a bicarb of 24. Anion gap is 18.1. BUN is 19 with a creatinine of 1.1. GFR greater than 60. Glucose is 297. Hemoglobin A1c is 8.4 indicating poor control of diabetes. Total bilirubin is 1.2 mildly elevated the remainder of the liver function is normal suggesting the patient suffers from Gilbert's syndrome. C-reactive protein is 0.7. Serum ketones are mildly e levated at 0.86. Due to mild ketosis I will give him 5 units of insulin intravenously. He will also require a second liter of normal saline IV. He has had 1 diarrheal stool since being in the ED and remains mildly nauseated. 09/26/20 01:57 blood sugar recorded at 285. He feels much better. He was discharged home therefore on Zofran 4 mg sublingual every 4 to 6 hours as needed as needed for nausea relief. Bentyl 20 mg every 6 hours p.m. for relief of abdominal cramping pain and diarrhea. He will stick primarily to clear fluid diet for the next 12 to 24 hours. Follow-up as needed Departure - Departure Time of Disposition: 01:57 Disposition: Home, Self-Care 01 Condition: Fair Clinical Impression: Viral gastroenteritis, Gastroenteritis, Vomiting - Discharge Information *PRESCRIPTION DRUG MONITORING PROGRAM REVIEWED*: Not Applicable *COPY OF PRESCRIPTION DRUG MONITORING REPORT IN PATIENT MARIO: Not Applicable Prescriptions: Dicyclomine [Bentyl] 20 mg PO Q6H PRN #5 tablet PRN Reason: Abdominal cramps/diarrhea Ondansetron [Zofran] 4 mg BUCCAL Q6H PRN #10 tab PRN Reason: nausea or vomiting Referrals: Tamanna Medina, [employer] [Primary Care Provider] - Forms: ED Department Discharge Additional Instructions: Evaluation the emergency room tonight in regards to acute onset of nausea vomiting diarrhea about 1800 hrs. last night. It appears that this is most likely viral in origin. You were quite dry when you were seen through the emergency room according to lab results. You were treated with 2 L of normal saline to provide rehydration. He received medications Reglan 10 mg IV and subsequently Zofran 2 mg IV for nausea relief. Initial dose of Dilaudid 1 mg IV for relief of abdominal cramping pain and to reduce the severity of the diarrhea. He also given first dose of Bentyl 20 mg by mouth before discharge home in the ED. Treatment at home is clear fluids such as Gatorade 0 ideally 5 to 6 ounces sipped per hour. When hungry may advance to soda crackers. After this may advance to white bread. Then may advance to broth soup and then chicken noodle or turkey rice soup etc. Monitor blood sugars at least 3 times daily for the next couple of days to make sure you do not develop severe elevated blood sugars which will create further dehydration and illness. May use Bentyl 20 mg by mouth every 6 hours to relieve abdominal cramping pain and diarrhea. Next tablet would be due around 0700 hrs. this morning. Similarly may use Zofran 4 mg under the tongue every 4 hours as needed for nausea or vomiting relief. Return to the emergency room over the weekend if not markedly improved in 24 to 36 hours. Sepsis Event Note (ED) - Evaluation Sepsis Screening Result: No Definite Risk - Focused Exam Vital Signs: Vital Signs Temp Pulse Resp BP Pulse Ox 09/25/20 22:35 36.4 C 110 H 20 148/81 H 90 L - My Orders Last 24 Hours: My Active Orders 09/25/20 23:00 Sodium Chloride 0.9% [Normal Saline] 1,000 ml IV ASDIRECTED 09/26/20 00:15 Sodium Chloride 0.9% [Normal Saline] 1,000 ml IV ASDIRECTED - Assessment/Plan Last 24 Hours: My Active Orders 09/25/20 23:00 Sodium Chloride 0.9% [Normal Saline] 1,000 ml IV ASDIRECTED 09/26/20 00:15 Sodium Chloride 0.9% [Normal Saline] 1,000 ml IV ASDIRECTED
[2020-09-25] MEDS: Sodium Chloride 0.9% 1,000 ML IV SCH (23:17)
[2020-09-25 23:24] LABS: HEMOGLOBIN A1C 8.4 %
[2020-09-26] MEDS ORDERED: Insulin Regular, Human 100 Units/ML 3 ML Vial IV ONE (00:08)
[2020-09-26] MEDS ORDERED: Ondansetron 4 MG/2 ML SDV IVPUSH ONE (00:08)
[2020-09-26] MEDS ORDERED: Sodium Chloride 0.9% 1,000 ML IV SCH (00:15)
[2020-09-26] MEDS: Sodium Chloride 0.9% 1,000 ML IV SCH ×2 (00:24→00:25)
[2020-09-26] MEDS ORDERED: Dicyclomine 10 MG Cap PO ONE (01:04)
[2020-09-26 02:11] VITALS: BP 142/67; PULSE 82
== END 2020-09-26 01:45 | disposition home or self-care (01) ==
LOC: JD.ED 22:16
DX: A08.4 Viral intestinal infection, unspecified (principal); E78.00 Pure hypercholesterolemia, unspecified; I10 Essential (primary) hypertension; E66.9 Obesity, unspecified; E11.9 Type 2 diabetes mellitus without complications; Z88.8 Allergy status to other drugs, medicaments and biological substances; Z68.41 Body mass index [BMI] 40.0-44.9, adult
CPT/HCPCS: 36415; 80053; 82009; 82947; 83036; 85025; 86140; 96374; 96375; 99284; A9270; J1170; J1815; J2405; J2765; J7030; 99283

== ENCOUNTER 2020-12-04 17:47 | Emergency (ER) | payer OTHER ==
[2020-12-04 18:08] VITALS: BP 159/87; PULSE 100
[2020-12-04] MEDS ORDERED: Sodium Chloride 0.9% 1,000 ML IV STA (18:13)
[2020-12-04] MEDS ORDERED: Ondansetron 4 MG/2 ML SDV IVPUSH ONE (18:13)
[2020-12-04] MEDS ORDERED: Sodium Chloride 0.9% 10 ML Syringe FLUSH PRN (18:13)
[2020-12-04] MEDS ORDERED: HYDROmorphone 1 MG/ML Syringe IVPUSH ONE (18:14)
--- NOTE | 2020-12-04 18:19 | EDM.PDOC ---
ED HPI GENERAL MEDICAL PROBLEM - General Chief Complaint: Gastrointestinal Problem Stated Complaint: VOMITING/DIARRHEA Time Seen by Provider: 12/04/20 18:08 Source of Information: Reports: Patient History Limitations: Reports: No Limitations - History of Present Illness INITIAL COMMENTS - FREE TEXT/NARRATIVE: The patient presents with nausea, vomiting, diarrhea and abdominal pain. This started last night. He has gone multiple times. He feels dehydrated. He has no fever, chills, cough, chest pain, shortness of breath, or dysuria. He still has his appendix and gallbladder. He says this has happened a few times in the past 6 months. 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 Non of the kids are sick as far as he knows and none of his family is sick. Onset: Gradual Duration: Day(s): (last night) Location: Reports: Abdomen Quality: Reports: Ache Severity: Moderate Improves with: Reports: None Worsens with: Reports: None Associated Symptoms: Reports: Nausea/Vomiting. Denies: Chest Pain, Cough, Fever/Chills, Headaches, Shortness of Breath - Related Data Allergies Allergy/AdvReac Type Severity Reaction Status Date / Time metformin AdvReac Severe Leg Cramps Verified 12/04/20 18:03 Home Meds: Home Meds glipiZIDE [Glucotrol] 10 mg PO BID 06/19/14 [History] Lisinopril 20 mg PO DAILY 09/12/15 [History] Losartan Potassium [Cozaar] 50 mg PO DAILY 09/25/20 [History] Rosuvastatin Calcium 5 mg PO DAILY 09/25/20 [History] Semaglutide [Ozempic] 1 mg SUBCUT WEEKLY 09/25/20 [History] Ondansetron [Zofran] 4 mg BUCCAL Q6H PRN #10 tab 09/26/20 [Rx] Ondansetron [Zofran ODT] 4 mg PO Q6H PRN #20 tab.dis 12/04/20 [Rx] Past Medical History HEENT History: Reports: Impaired Vision Cardiovascular History: Reports: High Cholesterol, Hypertension Respiratory History: Reports: None Gastrointestinal History: Reports: None Genitourinary History: Reports: None Musculoskeletal History: Reports: None Neurological History: Reports: None Psychiatric History: Reports: None Endocrine/Metabolic History: Reports: Diabetes, Type II, Obesity/BMI 30+ Hematologic History: Reports: None Immunologic History: Reports: None Oncologic (Cancer) History: Reports: None Dermatologic History: Reports: None - Infectious Disease History Infectious Disease History: Reports: None - Past Surgical History HEENT Surgical History: Reports: Oral Surgery Other HEENT Surgeries/Procedures: wisdom teeth Cardiovascular Surgical History: Reports: None Musculoskeletal Surgical History: Reports: Arthroscopic Knee Social & Family History - Family History Family Medical History: No Pertinent Family History - Tobacco Use Tobacco Use Status *Q: Never Tobacco User - Caffeine Use Caffeine Use: Reports: Soda Other Caffeine Use: diet - Recreational Drug Use Recreational Drug Use: No - Living Situation & Occupation Living situation: Reports: , with Family Occupation: Employed ED ROS GENERAL - Review of Systems Review Of Systems: See Below Constitutional: Reports: No Symptoms HEENT: Reports: No Symptoms Respiratory: Reports: No Symptoms Cardiovascular: Reports: No Symptoms Endocrine: Reports: No Symptoms GI/Abdominal: Reports: Abdominal Pain, Diarrhea, Nausea, Vomiting ED EXAM, GI/ABD - Physical Exam Exam: See Below Exam Limited By: No Limitations General Appearance: Alert, No Apparent Distress Ears: Normal External Exam Nose: Normal Inspection Head: Atraumatic, Normocephalic Neck: Normal Inspection Respiratory/Chest: No Respiratory Distress, Lungs Clear, Normal Breath Sounds Cardiovascular: Regular Rate, Rhythm, No Edema, No Murmur GI/Abdominal Exam: Soft, Non-Tender, No Organomegaly, No Mass Back Exam: Normal Inspection Extremities: Normal Inspection Course - Vital Signs Last Recorded V/S: Last Vital Signs Temp 96.8 F L 12/04/20 18:06 Pulse 100 12/04/20 18:06 Resp 20 12/04/20 18:06 BP 159/87 H 12/04/20 18:06 Pulse Ox 95 12/04/20 18:06 - Orders/Labs/Meds Orders: Active Orders 24 hr Category Date Time Status Peripheral IV Care [RC] . DIRECTED Care 12/04/20 18:13 Active UA W/MICROSCOPIC [URIN] Stat Lab 12/04/20 18:13 Stop Req Sodium Chloride 0.9% [Saline Flush] Med 12/04/20 18:13 Active 10 ml FLUSH ASDIRECTED PRN ED Antiemetic Medication Reflex [OM.PC] Stat Oth 12/04/20 18:14 Ordered Peripheral IV Insertion Adult [OM.PC] Stat Oth 12/04/20 18:13 Ordered Medication Orders Sodium Chloride (Sodium Chloride 0.9% 10 Ml Syringe) 10 ml FLUSH ASDIRECTED PRN PRN Reason: Keep Vein Open Last Admin: 12/04/20 18:33 Dose: 10 ml Documented by: LENI Labs: Laboratory Tests 12/04/20 12/04/20 Range/Units 18:20 18:20 WBC 6.02 (4.23-9.07) K/mm3 RBC 5.37 (4.63-6.08) M/mm3 Hgb 15.4 (13.7-17.5) gm/dl Hct 43.8 (40.1-51.0) % MCV 81.6 (79.0-92.2) fl MCH 28.7 (25.7-32.2) pg MCHC 35.2 (32.2-35.5) g/dl RDW Std Deviation 43.3 (35.1-43.9) fL Plt Count 204 (163-337) K/mm3 MPV 10.1 (9.4-12.3) fl Neut % (Auto) 73.9 H (34.0-67.9) % Lymph % (Auto) 15.6 L (21.8-53.1) % Banner % (Auto) 8.8 (5.3-12.2) % Eos % (Auto) 1.2 (0.8-7.0) Baso % (Auto) 0.3 (0.1-1.2) % Neut # (Auto) 4.45 (1.78-5.38) K/mm3 Lymph # (Auto) 0.94 L (1.32-3.57) K/mm3 Banner # (Auto) 0.53 (0.30-0.82) K/mm3 Eos # (Auto) 0.07 (0.04-0.54) K/mm3 Baso # (Auto) 0.02 (0.01-0.08) K/mm3 Sodium 139 (136-145) mEq/L Potassium 3.6 (3.5-5.1) mEq/L Chloride 101 (98-107) mEq/L Carbon Dioxide 25 (21-32) mEq/L Anion Gap 16.6 H (5-15) BUN 15 (7-18) mg/dL Creatinine 1.1 (0.7-1.3) mg/dL Est Cr Clr Drug Dosing 108.83 mL/min Estimated GFR (MDRD) > 60 (>60) mL/min BUN/Creatinine Ratio 13.6 L (14-18) Glucose 299 H (70-99) mg/dL Calcium 8.6 (8.5-10.1) mg/dL Total Bilirubin 0.7 (0.2-1.0) mg/dL AST 64 H (15-37) U/L ALT 140 H (16-63) U/L Alkaline Phosphatase 82 (46-116) U/L Total Protein 7.1 (6.4-8.2) g/dl Albumin 3.8 (3.4-5.0) g/dl Globulin 3.3 gm/dL Albumin/Globulin Ratio 1.2 (1-2) Lipase 72 L (73-393) U/L Meds: Medications Generic Name Dose Route Start Last Admin Trade Name Freq PRN Reason Stop Dose Admin Sodium Chloride 10 ml 12/04/20 18:13 12/04/20 18:33 Sodium Chloride 0.9% 10 Ml Syringe FLUSH 10 ml ASDIRECTED PRN Administration Keep Vein Open Discontinued Medications Generic Name Dose Route Start Last Admin Trade Name Freq PRN Reason Stop Dose Admin Hydromorphone HCl 1 mg 12/04/20 18:14 12/04/20 18:33 Hydromorphone 1 Mg/Ml Syringe IVPUSH 12/04/20 18:15 1 mg ONETIME ONE Administration Sodium Chloride 1,000 mls @ 1,000 mls/hr 12/04/20 18:13 12/04/20 18:33 Normal Saline IV 12/04/20 19:12 1,000 mls/hr .BOLUS STA Administration Ondansetron HCl 4 mg 12/04/20 18:13 12/04/20 18:33 Ondansetron 4 Mg/2 Ml Sdv IVPUSH 12/04/20 18:14 4 mg ONETIME ONE Administration - Re-Assessments/Exams Free Text/Narrative Re-Assessment/Exam: 12/04/20 18:18 I ordered an IV NS 1L bolus, zofran 4mg IV, dilaudid 1mg IV, labs and UA. 12/04/20 19:13 His CBC looks good. His anion gap is elevated at 16.6. His glucose is elevated at 299. His AST is elevated at 64. His ALT his elevated at 140. He feels much better. I will give him some zofran and discharge him home. Departure - Departure Time of Disposition: 19:15 Disposition: Home, Self-Care 01 Condition: Good Clinical Impression: Gastroenteritis - Discharge Information *PRESCRIPTION DRUG MONITORING PROGRAM REVIEWED*: Not Applicable *COPY OF PRESCRIPTION DRUG MONITORING REPORT IN PATIENT MARIO: Not Applicable Prescriptions: Ondansetron [Zofran ODT] 4 mg PO Q6H PRN #20 tab.dis PRN Reason: Nausea\vomiting Referrals: [facility] [employer] [facility] [Primary Care Provider] - Forms: ED Department Discharge Additional Instructions: Go home and rest. Drink plenty of fluids. Take zofran every 6 hours as needed for nausea and vomiting. Advance your diet as tolerated tomorrow. Please return if you are worse. Sepsis Event Note (ED) - Evaluation Sepsis Screening Result: No Definite Risk - Focused Exam Vital Signs: Vital Signs Temp Pulse Resp BP Pulse Ox 12/04/20 18:06 96.8 F L 100 20 159/87 H 95 - My Orders Last 24 Hours: My Active Orders 12/04/20 18:13 Peripheral IV Care [RC] . DIRECTED UA W/MICROSCOPIC [URIN] Stat Sodium Chloride 0.9% [Saline Flush] 10 ml FLUSH ASDIRECTED PRN Peripheral IV Insertion Adult [OM.PC] Stat 12/04/20 18:14 ED Antiemetic Medication Reflex [OM.PC] Stat - Assessment/Plan Last 24 Hours: My Active Orders 12/04/20 18:13 Peripheral IV Care [RC] . DIRECTED UA W/MICROSCOPIC [URIN] Stat Sodium Chloride 0.9% [Saline Flush] 10 ml FLUSH ASDIRECTED PRN Peripheral IV Insertion Adult [OM.PC] Stat 12/04/20 18:14 ED Antiemetic Medication Reflex [OM.PC] Stat
== END 2020-12-04 19:31 | disposition home or self-care (01) ==
LOC: JD.ED 17:47
DX: K52.9 Noninfective gastroenteritis and colitis, unspecified (principal); E78.00 Pure hypercholesterolemia, unspecified; I10 Essential (primary) hypertension; E11.9 Type 2 diabetes mellitus without complications; E66.9 Obesity, unspecified; Z68.30 Body mass index [BMI] 30.0-30.9, adult; Z79.899 Other long term (current) drug therapy; Z88.8 Allergy status to other drugs, medicaments and biological substances
CPT/HCPCS: 36415; 80053; 83690; 85025; 96374; 96375; 99284; J1170; J2405; J7030; 99283

== ENCOUNTER 2022-08-20 17:00 | Emergency (ER) | payer OTHER ==
[2022-08-20 17:12] VITALS: BP 158/80; PULSE 95
[2022-08-20 18:45] LABS: CORONAVIRUS COVID-19 NAA NEGATIVE (NEGATIVE)
[2022-08-20 19:09] LABS: HEMOGLOBIN A1C 8.1 %
== END 2022-08-20 19:23 | disposition home or self-care (01) ==
LOC: JD.ED 17:00
DX: R53.83 Other fatigue (principal); E11.65 Type 2 diabetes mellitus with hyperglycemia; E78.00 Pure hypercholesterolemia, unspecified; I10 Essential (primary) hypertension; E66.9 Obesity, unspecified; Z68.41 Body mass index [BMI] 40.0-44.9, adult; Z88.1 Allergy status to other antibiotic agents; Z88.8 Allergy status to other drugs, medicaments and biological substances; Z79.899 Other long term (current) drug therapy; Z20.822 Contact with and (suspected) exposure to COVID-19
CPT/HCPCS: 0240U; 36415; 71046; 80053; 83036; 84443; 85025; 86308; 99283

== ENCOUNTER 2022-08-24 13:20 | Emergency (ER) | payer OTHER ==
[2022-08-24] MEDS ORDERED: Ondansetron 4 MG/2 ML SDV IVPUSH ONE (13:48)
[2022-08-24] MEDS ORDERED: Sodium Chloride 0.9% 10 ML Syringe FLUSH PRN (13:48)
[2022-08-24] MEDS ORDERED: HYDROmorphone 1 MG/ML Syringe IVPUSH ONE (13:49)
[2022-08-24] MEDS ORDERED: Sodium Chloride 0.9% 1,000 ML IV ONE (14:21)
[2022-08-24 15:44] VITALS: BP 138/76; PULSE 93
== END 2022-08-24 16:01 | disposition home or self-care (01) ==
LOC: JD.ED 13:20
DX: B34.9 Viral infection, unspecified (principal); R53.83 Other fatigue; R11.0 Nausea; E11.9 Type 2 diabetes mellitus without complications; I10 Essential (primary) hypertension; E66.9 Obesity, unspecified; Z68.41 Body mass index [BMI] 40.0-44.9, adult; Z79.899 Other long term (current) drug therapy; Z79.82 Long term (current) use of aspirin; Z79.84 Long term (current) use of oral hypoglycemic drugs
CPT/HCPCS: 36415; 70450; 70450-26; 71045; 71045-26; 80053; 84484; 85025; 86308; 93005; 96361; 96374; 96375; 99285-25; J1170; J2405; J3490; J7030

== ENCOUNTER 2022-08-27 23:06 | Emergency (ER) | payer OTHER ==
[2022-08-28 01:22] LABS: CORONAVIRUS COVID-19 NAA NEGATIVE (NEGATIVE)
[2022-08-28] MEDS ORDERED: Ondansetron 4 MG/2 ML SDV IVPUSH ONE (02:54)
[2022-08-28] MEDS ORDERED: Sodium Chloride 0.9% 1,000 ML IV ONE (02:54)
[2022-08-28 04:47] VITALS: BP 138/82; PULSE 88
== END 2022-08-28 04:30 | disposition home or self-care (01) ==
LOC: JD.ED 23:06
DX: K52.9 Noninfective gastroenteritis and colitis, unspecified (principal); B34.9 Viral infection, unspecified; E78.00 Pure hypercholesterolemia, unspecified; I10 Essential (primary) hypertension; E66.9 Obesity, unspecified; Z68.41 Body mass index [BMI] 40.0-44.9, adult; Z88.8 Allergy status to other drugs, medicaments and biological substances; Z79.82 Long term (current) use of aspirin; Z79.899 Other long term (current) drug therapy; Z20.822 Contact with and (suspected) exposure to COVID-19
CPT/HCPCS: 0241U; 36415; 80053; 81003; 82947; 84443; 84484; 85025; 85379; 86308; 93005; 96361; 96374; 99284; J2405; J7030

== ENCOUNTER 2022-10-29 08:23 | Emergency (ER) | payer OTHER ==
[2022-10-29 09:12] LABS: BASOPHILS ABSOLUTE AUTO 0.03 K/mm3 (0.01-0.08); BASOPHILS PERCENT AUTO 0.6 % (0.1-1.2); EOSINOPHILS ABSOLUTE AUTO 0.09 K/mm3 (0.04-0.54); EOSINOPHILS PERCENT AUTO 1.9 (0.8-7.0); HEMATOCRIT 41.7 % (40.1-51.0); HEMOGLOBIN 14.4 gm/dl (13.7-17.5); IMMATURE GRAN ABSOLUTE AUTO 0.01 K/mm3 (0.00-0.10); IMMATURE GRAN PERCENT AUTO 0.2 % (<=1.0); LYMPHOCYTES ABSOLUTE AUTO 1.24 K/mm3 (1.32-3.57); LYMPHOCYTES PERCENT AUTO 26.5 % (21.8-53.1); MEAN CORPUSCULAR HEMOGLOBIN 28.3 pg (25.7-32.2); MEAN CORPUSCULAR HGB CONC 34.5 g/dl (32.2-35.5); MEAN CORPUSCULAR VOLUME 82.1 fl (79.0-92.2); MEAN PLATELET VOLUME 10.5 fl (9.4-12.3); MONOCYTES ABSOLUTE AUTO 0.31 K/mm3 (0.30-0.82); MONOCYTES PERCENT AUTO 6.6 % (5.3-12.2); NEUTROPHILS PERCENT AUTO 64.2 % (34.0-67.9); PLATELET COUNT,PLT 210 K/mm3 (163-337); RED BLOOD CELL COUNT 5.08 M/mm3 (4.63-6.08); WHITE BLOOD CELL COUNT,WBC 4.68 K/mm3 (4.23-9.07)
[2022-10-29] MEDS ORDERED: Iopamidol 612 MG/ML 100 ML Bottle IVPUSH ONE (09:27)
[2022-10-29 09:33] LABS: INR 1.07; PROTHROMBIN TIME 11.4 SECONDS (9.7-12.0)
[2022-10-29 09:34] LABS: PTT,PARTIAL THROMBOPLSTIN TIME 26.7 SECONDS (21.7-31.4)
[2022-10-29 09:41] LABS: A/G RATIO 1.2 (1-2); ALBUMIN 3.8 g/dl (3.4-5.0); ANION GAP 12.1 (5-15); BILIRUBIN TOTAL 0.7 mg/dL (0.2-1.0); BUN/CREATININE RATIO 11.3 (14-18); CALCIUM 8.8 mg/dL (8.5-10.1); CREATININE 1.5 mg/dL (0.7-1.3); EST CRCL DRUG DOSING (CG) 76.11 mL/min; POTASSIUM,K 4.1 mEq/L (3.5-5.1); PROTEIN TOTAL,TP 6.9 g/dl (6.4-8.2)
[2022-10-29 11:45] LABS: APPEARANCE,URINE CLEAR (Clear); BILIRUBIN,URINE NEGATIVE (Negative); COLOR,URINE YELLOW (Yellow); GLUCOSE,URINE 2+ (Negative); KETONES,URINE NEGATIVE (Negative); LEUKOCYTE ESTERASE,URINE NEGATIVE (Negative); NITRITE,URINE NEGATIVE (Negative); OCCULT BLOOD,URINE NEGATIVE (Negative); PH,URINE 5.5 (5.0-8.0); PROTEIN,URINE NEGATIVE (Negative); UROBILINOGEN,URINE 0.2 (0.2-1.0)
[2022-10-29 12:00] LABS: BACTERIA,URINE NOT SEEN /hpf (FEW); EPITHELIAL CELLS,URINE NOT SEEN /hpf (0-5); MUCUS,URINE RARE /hpf (FEW); RBC,URINE 0-5 /hpf (0-5); WBC,URINE NOT SEEN /hpf (0-5)
[2022-10-29] MEDS ORDERED: Orphenadrine 100 MG Tab.ER PO ONE (12:06)
[2022-10-29] MEDS ORDERED: Diphtheria,Pertussis(Acell),Tetanus Vaccine 0.5 ML Syringe IM ONE (12:07)
[2022-10-29 12:35] VITALS: BP 133/72; PULSE 85
== END 2022-10-29 12:34 | disposition home or self-care (01) ==
LOC: JD.ED 08:23
DX: S09.90XA Unspecified injury of head, initial encounter (principal); S81.812A Laceration without foreign body, left lower leg, initial encounter; M25.551 Pain in right hip; M25.552 Pain in left hip; M54.2 Cervicalgia; E78.00 Pure hypercholesterolemia, unspecified; E11.9 Type 2 diabetes mellitus without complications; E66.9 Obesity, unspecified; Z68.41 Body mass index [BMI] 40.0-44.9, adult; Z23 Encounter for immunization; Z88.8 Allergy status to other drugs, medicaments and biological substances; Z79.82 Long term (current) use of aspirin; Z79.84 Long term (current) use of oral hypoglycemic drugs; Z79.899 Other long term (current) drug therapy; W11.XXXA Fall on and from ladder, initial encounter
CPT/HCPCS: 36415; 70450; 71260; 72125; 73552; 74177; 80053; 80307; 81001; 85025; 85610; 85730; 86850; 86900; 86901; 90471; 90715; 99284; A9270; Q9967

== ENCOUNTER 2023-08-29 13:23 | Emergency (ER) | payer OTHER ==
[2023-08-29] MEDS ORDERED: Sodium Chloride 0.9% 3,000 ML IV ONE (14:25)
[2023-08-29 14:29] LABS: BASOPHILS PERCENT AUTO 0.4 % (0.0-1.0); EOSINOPHILS ABSOLUTE AUTO 0.1 K/mm3 (0.0-0.4); EOSINOPHILS PERCENT AUTO 0.6 % (0.0-6.0); HEMATOCRIT 45.6 % (42.0-52.0); IMMATURE GRAN ABSOLUTE AUTO 0.02 K/mm3 (0.00-0.05); IMMATURE GRAN PERCENT AUTO 0.2 % (0.0-0.4); LYMPHOCYTES ABSOLUTE AUTO 0.3 K/mm3 (1.0-4.8); LYMPHOCYTES PERCENT AUTO 3.2 % (24.0-44.0); MEAN CORPUSCULAR HEMOGLOBIN 29.7 pg (28.0-32.0); MEAN CORPUSCULAR HGB CONC 35.1 g/dl (32.0-36.0); MEAN CORPUSCULAR VOLUME 84.8 fl (83.0-99.0); MEAN PLATELET VOLUME 9.7 fl (9.4-12.4); MONOCYTES ABSOLUTE AUTO 0.3 K/mm3 (0.0-0.8); MONOCYTES PERCENT AUTO 3.4 % (0.0-8.0); NEUTROPHILS ABSOLUTE AUTO 7.8 K/mm3 (1.8-7.7); NEUTROPHILS PERCENT AUTO 92.2 % (41.0-71.0); PLATELET COUNT,PLT 186 K/mm3 (150-400); RED BLOOD CELL COUNT 5.38 M/mm3 (4.52-5.90); WHITE BLOOD CELL COUNT,WBC 8.44 K/mm3 (3.9-11.3)
[2023-08-29] MEDS: Sodium Chloride 0.9% 1,000 ML IV SCH (14:40)
[2023-08-29] MEDS: Acetaminophen 325 MG Tab PO ONE (14:41)
[2023-08-29 14:49] LABS: A/G RATIO 1.3 (1-2); ANION GAP 12.4 (5-15); BUN/CREATININE RATIO 14.5 (14-18); CALCIUM 8.7 mg/dL (8.5-10.1); CREATININE 1.1 mg/dL (0.7-1.3); EST CRCL DRUG DOSING (CG) 105.63 mL/min; POTASSIUM,K 4.4 mEq/L (3.5-5.1); PROTEIN TOTAL,TP 7.2 g/dl (6.4-8.2)
[2023-08-29 15:09] LABS: SLIDE REVIEW ABNORMAL SMEAR
[2023-08-29 15:27] LABS: CORONAVIRUS COVID-19 NAA NEGATIVE (NEGATIVE); INFLUENZA A NAA NEGATIVE (NEGATIVE); RESPIRATORY SYNCYTIAL VIR NAA NEGATIVE (NEGATIVE)
[2023-08-29] MEDS: cefTRIAXone 1 GM in Sodium Chloride 0.9% 100 ML IV ONE (15:27)
[2023-08-29] MEDS: Iopamidol 755 Mg/ML 100 ML Bottle IVPUSH ONE (16:07)
[2023-08-29] MEDS: Sodium Chloride 0.9% 100 ML IV SCH (16:08)
[2023-08-29] MEDS: Sodium Chloride 0.9% 10 ML Syringe FLUSH PRN (16:08)
[2023-08-29] MEDS: Azithromycin 500 MG in Sodium Chloride 0.9% 250 ML IV ONE (16:27)
[2023-08-29 16:29] LABS: MAGNESIUM 1.8 mg/dL (1.8-2.4)
[2023-08-29 16:46] LABS: TROPONIN I HIGH SENSITIVITY < 4 pg/mL (<=76)
[2023-08-29 20:04] VITALS: BP 105/78; PULSE 67
[2023-08-31 15:42] LABS: CMV QNT BY NAAT, INTERP,PL Detected (Not Detected); CMV QNT BY NAAT, IU/ML,PL Not Quantified IU/mL; CMV QNT BY NAAT, LOGIU/ML,PL Not Quantified log IU/mL
== END 2023-08-29 20:04 | disposition home or self-care (01) ==
LOC: JD.ED 13:23
DX: R50.9 Fever, unspecified (principal); R65.10 Systemic inflammatory response syndrome (SIRS) of non-infectious origin without acute organ dysfunction; E78.00 Pure hypercholesterolemia, unspecified; I10 Essential (primary) hypertension; E11.9 Type 2 diabetes mellitus without complications; Z88.8 Allergy status to other drugs, medicaments and biological substances; Z79.82 Long term (current) use of aspirin; Z79.84 Long term (current) use of oral hypoglycemic drugs
CPT/HCPCS: 0241U; 36415; 71045; 71275; 74177; 80053; 83605; 83735; 84484; 85025; 85379; 86140; 87040; 87086; 87497; 87651; 93005; 96361; 96365; 96367; 99285; A9270; J0456; J0696; J3490; J7030; J7050; Q9967; 93010; 99284